=== PATIENT | female | born 1990 | race Caucasian/White ===

== ENCOUNTER 2018-05-13 09:40 | Inpatient (IN) | payer OTHER ==
[~2018-05-13] VITALS: Ht 152.4 cm; Wt 77.2 kg
[2018-05-13] MEDS ORDERED: NEWBORN KIT ONE (09:41)
[2018-05-13] MEDS ORDERED: OXYTOCIN 30U/ 0.9% NaCL 500ML 500 ML ONE (09:42)
[2018-05-13 10:00] VITALS: BP 114/77
[2018-05-13] MEDS ORDERED: SODIUM CITRATE/CITRIC ACID 30 ML UDC PO ONE (10:00)
[2018-05-13] MEDS ORDERED: LACTATED RINGERS 1,000 ML IVBOLUS ONE (10:00)
[2018-05-13] MEDS ORDERED: METOCLOPRAMIDE 5 MG/ML, 2ML IV ONE (10:00)
[2018-05-13] MEDS: LACTATED RINGERS 1,000 ML IV SCH ×8 (10:05→23:24)
[2018-05-13 10:35] VITALS: BP 117/69
[2018-05-13 10:48] LABS: BASOPHILS # (AUTO) 0.03 x10^3/uL (0-0.1); BASOPHILS % (AUTO) 0 % (0-1); EOSINOPHILS # (AUTO) 0.08 x10^3/uL (0-0.4); EOSINOPHILS % (AUTO) 1 % (1-7); LYMPHOCYTES # (AUTO) 2.19 x10^3/uL (1-3.4); LYMPHOCYTES % (AUTO) 26 % (22-44); MD NO; MEAN CORPUSCULAR HEMOGLOBIN 24.7 pg (27.0-34.8); MEAN CORPUSCULAR HGB CONC 32.3 g/dL (32.4-35.8); MEAN CORPUSCULAR VOLUME 76.5 fL (80-100); MEAN PLATELET VOLUME 7.8 fL (7.4-10.4); MONOCYTES # (AUTO) 0.65 x10^3/uL (0.2-0.8); MONOCYTES % (AUTO) 8 % (2-9); NEUTROPHILS # (AUTO) 5.47 x10^3/uL (1.8-6.8); NEUTROPHILS % (AUTO) 65 % (42-75); PLATELET COUNT 291 x10^3/uL (130-400); RED BLOOD COUNT 4.27 x10^6/uL (3.82-5.3); RED CELL DISTRIBUTION WIDTH 16.8 % (9.6-15.2)
[2018-05-13] MEDS ORDERED: METOCLOPRAMIDE 5 MG/ML, 2ML ONE (11:17)
[2018-05-13] MEDS ORDERED: MISOPROSTOL 200 MCG TABLET ONE (11:17)
[2018-05-13] MEDS ORDERED: SODIUM CITRATE/CITRIC ACID 30 ML UDC ONE (11:17)
[2018-05-13] MEDS ORDERED: PHENYLEPHRINE 10 MG/ML ONE (11:41)
[2018-05-13] MEDS ORDERED: ONDANSETRON 2MG/ML, 2ML ONE (11:41)
[2018-05-13] MEDS ORDERED: FENTANYL PF 100 MCG/2ML ONE (11:41)
[2018-05-13] MEDS ORDERED: CEFAZOLIN 1,000 MG ONE (11:41)
[2018-05-13] MEDS ORDERED: KETOROLAC 30 MG/1 ML ONE (11:41)
[2018-05-13] MEDS ORDERED: OXYTOCIN 10 UNITS/ML, 1ML ONE (11:41)
[2018-05-13] MEDS ORDERED: EPHEDRINE 50 MG/ML, 1ML ONE (11:41)
[2018-05-13] MEDS ORDERED: DEXAMETHASONE 4 MG/ML, 1ML ONE (11:41)
[2018-05-13] MEDS ORDERED: EPHEDRINE 50 MG/ML, 1ML IVPush PRN (12:00)
[2018-05-13] MEDS ORDERED: ALBUTEROL/IPRATROPIUM 2.5MG/0.5MG, 3 ML NPPB PRN (12:00)
[2018-05-13] MEDS ORDERED: MIDAZOLAM 1 MG/ML, 2ML IV PRN (12:00)
[2018-05-13] MEDS ORDERED: LABETALOL 5MG/ML, 20ML IV PRN (12:00)
[2018-05-13] MEDS ORDERED: HYDROcodone/APAP 7.5-325MG/15ML UDC PO PRN (12:00)
[2018-05-13] MEDS ORDERED: HYDROmorphone 1 MG/ML, 1ML IV PRN (12:00)
[2018-05-13] MEDS ORDERED: PROMETHAZINE 25 MG/ML, 1ML IV PRN (12:00)
[2018-05-13] MEDS ORDERED: hydrALAzine 20 MG/ML, 1ML IV PRN (12:00)
[2018-05-13] MEDS ORDERED: ONDANSETRON 2MG/ML, 2ML IVPush PRN (12:00)
[2018-05-13] MEDS ORDERED: OXYcodone 5 MG/5 ML ORAL.SOL UDC PO PRN (12:00)
[2018-05-13] MEDS ORDERED: FENTANYL PF 100 MCG/2ML IV PRN (12:00)
[2018-05-13] MEDS ORDERED: MEPERIDINE/PF 25MG/0.5ML IVPush PRN (12:00)
[2018-05-13] MEDS: OXYTOCIN 30U/ 0.9% NaCL 500ML 500 ML IV SCH ×4 (13:24→23:24)
[2018-05-13] MEDS ORDERED: CARBOPROST TROMETHAMINE 250 MCG/ML, 1ML IM PRN (13:30)
[2018-05-13] MEDS ORDERED: morphine SULFATE 10 MG/ML, 1ML IVPush PRN ×2 (13:30)
[2018-05-13] MEDS ORDERED: METHYLERGONOVINE 0.2 MG/ML IM PRN (13:30)
[2018-05-13] MEDS ORDERED: ACETAMINOPHEN 325 MG TABLET PO PRN (13:30)
[2018-05-13] MEDS ORDERED: ONDANSETRON 2MG/ML, 2ML IV PRN (13:30)
[2018-05-13] MEDS ORDERED: MISOPROSTOL 200 MCG TABLET PR PRN (13:30)
[2018-05-13 15:35] VITALS: BP 122/77
[2018-05-13 19:45] VITALS: BP 118/76
[2018-05-13 21:06] LABS: BASOPHILS # (AUTO) 0.03 x10^3/uL (0-0.1); BASOPHILS % (AUTO) 0 % (0-1); EOSINOPHILS % (AUTO) 0 % (1-7); LYMPHOCYTES % (AUTO) 11 % (22-44); MD NO; MEAN CORPUSCULAR HGB CONC 32.2 g/dL (32.4-35.8); MEAN CORPUSCULAR VOLUME 77.5 fL (80-100); MEAN PLATELET VOLUME 7.6 fL (7.4-10.4); MONOCYTES % (AUTO) 4 % (2-9); NEUTROPHILS # (AUTO) 12.22 x10^3/uL (1.8-6.8); NEUTROPHILS % (AUTO) 86 % (42-75); PLATELET COUNT 290 x10^3/uL (130-400); RED BLOOD COUNT 4.24 x10^6/uL (3.82-5.3); RED CELL DISTRIBUTION WIDTH 16.9 % (9.6-15.2)
[2018-05-14 00:40] VITALS: BP 121/77
[2018-05-14] MEDS: IBUPROFEN 600 MG TABLET PO PRN ×3 (01:01→20:37)
[2018-05-14] MEDS: OXYcodone/APAP 5/325MG TABLET PO PRN ×3 (01:02→20:37)
[2018-05-14] MEDS: LACTATED RINGERS 1,000 ML IV SCH ×11 (02:00→21:24)
[2018-05-14 04:40] VITALS: BP 113/73
[2018-05-14] MEDS: OXYTOCIN 30U/ 0.9% NaCL 500ML 500 ML IV SCH ×4 (06:00→19:24)
[2018-05-14 06:55] VITALS: BP 106/68
[2018-05-14] MEDS: DOCUSATE 100 MG CAPSULE PO PRN ×2 (08:15→20:37)
[2018-05-14] MEDS: PRENATAL VIT/IRON/FA 1 EACH TABLET PO SCH (09:00)
[2018-05-14 12:00] VITALS: BP 108/70
[2018-05-14 19:30] VITALS: BP 110/69
[2018-05-14 23:56] VITALS: BP 111/71
[2018-05-15] MEDS: OXYTOCIN 30U/ 0.9% NaCL 500ML 500 ML IV SCH ×3 (02:00→12:00)
[2018-05-15] MEDS: LACTATED RINGERS 1,000 ML IV SCH ×6 (02:00→10:05)
[2018-05-15] MEDS: OXYcodone/APAP 5/325MG TABLET PO PRN ×2 (02:00→10:24)
[2018-05-15] MEDS: IBUPROFEN 600 MG TABLET PO PRN (05:34)
[2018-05-15 07:45] VITALS: BP 114/72
[2018-05-15] MEDS ORDERED: OXYC-302 PO (09:46)
[2018-05-15] MEDS ORDERED: SENN-52 PO (09:47)
[2018-05-15] MEDS ORDERED: IBUP-1222 PO (09:47)
[2018-05-15] MEDS: PRENATAL VIT/IRON/FA 1 EACH TABLET PO SCH (10:24)
[2018-05-15] MEDS: DOCUSATE 100 MG CAPSULE PO PRN (10:24)
== END 2018-05-15 13:43 | disposition home or self-care (01) | DRG 766 ==
LOC: LDIP 09:52 → 2NW 15:30
PROVIDERS: ADMIT Obstetrics & Gynecology; ATTEND Obstetrics & Gynecology
PROC: 10D00Z1 Extraction of Products of Conception, Low, Open Approach (ICD-10-PCS; principal; 2018-05-13)
DX: O34.211 Maternal care for low transverse scar from previous cesarean delivery (principal); O62.3 Precipitate labor; O77.0 Labor and delivery complicated by meconium in amniotic fluid; Z3A.39 39 weeks gestation of pregnancy; Z37.0 Single live birth
CPT/HCPCS: 36415; 85025; 86850; 86900; 88305; J0690; J1100; J1885; J2405; J3010; J2370; J2590; J2765; J7120